=== PATIENT | male | born 1990 | race Caucasian/White ===

== ENCOUNTER 2019-10-07 20:48 | Inpatient (IN) | payer SELFPAY ==
[~2019-10-07] VITALS: Ht 175.3 cm; Wt 71.2 kg
[2019-10-07] VITALS (10 sets, daily range): BP systolic 116–125; BP diastolic 63–81
[2019-10-07] MEDS ORDERED: KETOROLAC 30 MG/ML VIAL IVP ONE (21:00)
[2019-10-07] MEDS ORDERED: fentaNYL INJECTION 100 MCG/2 ML AMP ONE (21:03)
[2019-10-07] MEDS ORDERED: KETOROLAC 30 MG/ML VIAL ONE (21:04)
--- NOTE | 2019-10-07 21:04 | ED Cough/URI ---
General Stated Complaint: FEVER,CHEST PAIN,NEW COUGH Source: patient Exam Limitations: no limitations History of Present Illness Date Seen by Provider: Oct 07, 2019 Time Seen by Provider: 21:02 Initial Comments 29 year old homeless gentleman from [place] to ER with c/o productive coughx3-4 days, sharp stabbing right chest pain x1 day, subjective fevers x1 week that began while he was in [facility]. Otherwise healthy with no known medical problems. Timing/Duration: getting worse Severity/Quality: moderate, productive cough Associated Symptoms: cough, fever/chills, shortness of breath Allergies and Home Medications Allergies Coded Allergies: No Known Drug Allergies (Unverified , 10/07/19) Patient Home Medication List Home Medication List Reviewed: Yes Review of Systems Review of Systems Constitutional: see HPI, chills EENTM: see HPI Respiratory: see HPI, cough Cardiovascular: see HPI, chest pain Genitourinary: no symptoms reported Musculoskeletal: no symptoms reported Skin: no symptoms reported Psychiatric/Neurological: No Symptoms Reported Hematologic/Lymphatic: No Symptoms Reported Physical Exam Vital Signs - First Documented 10/07/19 20:48 Temp 37.2 Pulse 125 Resp 18 B/P (MAP) 127/67 (87) Pulse Ox 94 O2 Delivery Room Air Capillary Refill : Height: '" Weight: lbs. oz. kg; BMI Method: General Appearance: WD/WN, mild distress (related to pain), other (anxious appearing, tachycardic; minor hemoptysis noted. ) HEENT: PERRL/EOMI, normal ENT inspection Neck: non-tender, full range of motion Respiratory: normal breath sounds, no respiratory distress, no accessory muscle use Cardiovascular: other (tachycardic at 120s, SpO2 at 94% room air. ) Gastrointestinal: normal bowel sounds, non tender, soft Neurologic/Psychiatric: alert, normal mood/affect, oriented x 3 Skin: normal color, warm/dry, rash (sharply demarcated petechial rash just above each ankle. Denies wearing any different shoes, denies being in shackles while in [facility]. ) Focused Exam Lactate Level 10/07/19 21:42: Lactic Acid Level Laboratory Tests Test 10/07/19 21:42 Progress/Results/Core Measures Suspected Sepsis SIRS Temperature: Pulse: Respiratory Rate: Laboratory Tests 10/07/19 20:55: White Blood Count 30.0H Blood Pressure / Mean: 10/07/19 21:42: Laboratory Tests 10/07/19 20:55: Creatinine 0.95, Platelet Count 287, Total Bilirubin 1.3H Results/Orders Lab Results Laboratory Tests Test 10/07/19 20:55 10/07/19 20:57 10/07/19 21:42 Range/Units White Blood Count 30.0 H 4.3-11.0 10^3/uL Red Blood Count 4.80 4.35-5.85 10^6/uL Hemoglobin 14.2 13.3-17.7 G/DL Hematocrit 43 40-54 % Mean Corpuscular Volume 89 80-99 FL Mean Corpuscular Hemoglobin 30 25-34 PG Mean Corpuscular Hemoglobin Concent 33 32-36 G/DL Red Cell Distribution Width 14.2 10.0-14.5 % Platelet Count 287 130-400 10^3/uL Mean Platelet Volume 11.6 H 7.4-10.4 FL Neutrophils (%) (Auto) 84 H 42-75 % Lymphocytes (%) (Auto) 7 L 12-44 % Monocytes (%) (Auto) 9 0-12 % Eosinophils (%) (Auto) 0 0-10 % Basophils (%) (Auto) 0 0-10 % Neutrophils # (Auto) 25.1 H 1.8-7.8 X 10^3 Lymphocytes # (Auto) 2.1 1.0-4.0 X 10^3 Monocytes # (Auto) 2.8 H 0.0-1.0 X 10^3 Eosinophils # (Auto) 0.0 0.0-0.3 10^3/uL Basophils # (Auto) 0.0 0.0-0.1 10^3/uL Neutrophils % (Manual) 87 % Lymphocytes % (Manual) 5 % Monocytes % (Manual) 7 % Band Neutrophils 1 % Blood Morphology Comment NORMAL D-Dimer 1.41 H 0.00-0.49 UG/ML Sodium Level 132 L 135-145 MMOL/L Potassium Level 4.5 3.6-5.0 MMOL/L Chloride Level 97 L 98-107 MMOL/L Carbon Dioxide Level 23 21-32 MMOL/L Anion Gap 12 5-14 MMOL/L Blood Urea Nitrogen 19 H 7-18 MG/DL Creatinine 0.95 0.60-1.30 MG/DL Estimat Glomerular Filtration Rate > 60 BUN/Creatinine Ratio 20 Glucose Level 94 70-105 MG/DL Calcium Level 9.9 8.5-10.1 MG/DL Corrected Calcium 9.5 8.5-10.1 MG/DL Total Bilirubin 1.3 H 0.1-1.0 MG/DL Aspartate Amino Transf (AST/SGOT) 15 5-34 U/L Alanine Aminotransferase (ALT/SGPT) 21 0-55 U/L Alkaline Phosphatase 68 40-136 U/L Lactate Dehydrogenase 181 125-220 U/L C-Reactive Protein High Sensitivity 19.30 H 0.00-0.50 MG/DL Total Protein 9.2 H 6.4-8.2 GM/DL Albumin 4.5 3.2-4.5 GM/DL Group A Streptococcus Screen NEGATIVE NEGATIVE Micro Results Microbiology 10/07/19 Influenza Types A,B Antigen (ABBEY) - Final, Complete My Orders Orders - MAGALIS TELLEZ APRN Fentanyl Injection (Sublimaze Injection (10/07/19 21:00) Ketorolac Injection (Toradol Injection) (10/07/19 21:00) Cbc With Automated Diff (10/07/19 21:00) Hs C Reactive Protein (10/07/19 21:00) Comprehensive Metabolic Panel (10/07/19 21:00) Drug Screen Stat (Urine) (10/07/19 21:00) Ed Iv/Invasive Line Start (10/07/19 21:00) Ekg Tracing (10/07/19 21:00) Chest 1 View, Ap/Pa Only (10/07/19 21:00) LDH (10/07/19 21:00) Ferritin (10/07/19 21:00) Procalcitonin (Pct) (10/07/19 21:00) Rapid Strep A Screen (10/07/19 21:00) Influenza A And B Antigens (10/07/19 21:00) Fibrin Degradation Products (10/07/19 21:04) Manual Differential (10/07/19 20:55) Blood Culture (10/07/19 21:16) Lactic Acid Analyzer (10/07/19 21:16) Cefepime Injection (Maxipime Injection) (10/07/19 21:30) Fentanyl Injection (Sublimaze Injection (10/07/19 21:30) Ns Iv 1000 Ml (Sodium Chloride 0.9%) (10/07/19 21:30) Sputum Culture (10/07/19 21:31) Ct Angio Chest W (10/07/19 21:31) Medications Given in ED Current Medications Medications Dose Ordered Sig/Keira Route Start Time Stop Time Status Last Admin Dose Admin Ketorolac Tromethamine 15 mg ONCE ONCE IVP 10/07/19 21:00 10/07/19 21:02 DC 10/07/19 21:14 15 MG Vital Signs/I&O 10/07/19 20:48 Temp 37.2 Pulse 125 Resp 18 B/P (MAP) 127/67 (87) Pulse Ox 94 O2 Delivery Room Air Capillary Refill : Departure Communication (Admissions) Time/Spoke to Admitting Phy: 21:49 2125-covid swab obtained but pt refuses to allow this to go beyond about 2cm deep before grabbing my hand. It was, however, moist with nasal secretions. Impression Primary Impression: Pneumonia Disposition: ADMITTED INPATIENT Condition: Stable Admissions Decision to Admit Reason: Admit from ER (General) Decision to Admit/Date: Oct 07, 2019 Time/Decision to Admit Time: 21:28 MAGALIS TELLEZ OPERATIONS SUPERVISOR 2ND SHIFT Oct 07, 2019 21:04
[2019-10-07 21:08] LABS: BASOPHILS % (AUTO) 0 % (0-10); EOSINOPHILS % (AUTO) 0 % (0-10); HEMATOCRIT 43 % (40-54); HEMOGLOBIN 14.2 G/DL (13.3-17.7); LYMPHOCYTES # (AUTO) 2.1 X 10^3 (1.0-4.0); LYMPHOCYTES % (AUTO) 7 % (12-44); MEAN CORPUSCULAR HEMOGLOBIN 30 PG (25-34); MEAN CORPUSCULAR HGB CONC 33 G/DL (32-36); MEAN CORPUSCULAR VOLUME 89 FL (80-99); MEAN PLATELET VOLUME 11.6 FL (7.4-10.4); MONOCYTES # (AUTO) 2.8 X 10^3 (0.0-1.0); MONOCYTES % (AUTO) 9 % (0-12); NEUTROPHILS # (AUTO) 25.1 X 10^3 (1.8-7.8); NEUTROPHILS % (AUTO) 84 % (42-75); PLATELET COUNT 287 10^3/uL (130-400); RED CELL DISTRIBUTION WIDTH 14.2 % (10.0-14.5)
[2019-10-07] MEDS: fentaNYL INJECTION 100 MCG/2 ML AMP IVP ONE (21:15)
--- NOTE | 2019-10-07 21:27 | Diagnostic Imaging Report ---
INDICATION: Febrile. Chest pain. EXAMINATION: Portable chest. FINDINGS: The lungs are well-aerated and clear. The heart is not enlarged. No pulmonary edema or hilar adenopathy. No bony abnormality. IMPRESSION: Normal portable chest. Dictated by: Dictated on workstation # [id number]
[2019-10-07] MEDS ORDERED: NS IV 1000 ML 1,000 ML IV SCH ×2 (21:30→23:15)
[2019-10-07] MEDS ORDERED: CEFEPIME INJECTION 2,000 MG in WATER (STERILE) FOR INJECTION 20 ML IV ONE (21:30)
[2019-10-07] MEDS ORDERED: fentaNYL INJECTION 100 MCG/2 ML AMP IVP ONE (21:30)
[2019-10-07 21:33] LABS: ALANINE AMINOTRANSFERASE 21 U/L (0-55); ALBUMIN 4.5 GM/DL (3.2-4.5); ALKALINE PHOSPHATASE 68 U/L (40-136); BILIRUBIN,TOTAL 1.3 MG/DL (0.1-1.0); BUN/CREATININE RATIO 20; CALCIUM 9.9 MG/DL (8.5-10.1); CARBON DIOXIDE 23 MMOL/L (21-32); CHLORIDE 97 MMOL/L (98-107); CREATININE SERUM 0.95 MG/DL (0.60-1.30); GFR ESTIMATED > 60; GLUCOSE 94 MG/DL (70-105); POTASSIUM 4.5 MMOL/L (3.6-5.0); SODIUM 132 MMOL/L (135-145); TOTAL PROTEIN 9.2 GM/DL (6.4-8.2)
[2019-10-07 21:46] LABS: BAND NEUTROPHILS 1 %; LYMPHOCYTES % (MANUAL) 5 %; MONOCYTES % (MANUAL) 7 %; NEUTROPHILS % (MANUAL) 87 %; RBC MORPH NORMAL
--- NOTE | 2019-10-07 21:50 | NUR ---
BLOOD TINGED SPUTUM NOTED AT THIS TIME. CINDA MILLARD
--- NOTE | 2019-10-07 21:55 | NUR ---
PT TO CT PER W/C AT THIS TIME.
--- NOTE | 2019-10-07 22:04 | NUR ---
PT BACK FROM CT AT THIS TIME.
--- NOTE | 2019-10-07 22:09 | NUR ---
REPORT TO LORAINE MEDEROS AT THIS TIME.
--- OUTSIDE RECORDS SUMMARY | 2019-10-07 22:19 | XMS REPORT | Continuity of Care Document ---
Demographics Preferred Language Unknown Marital Status Unknown Latter Day Affiliation Unknown Race Unknown Ethnic Group Unknown Author Organization Unknown Address Unknown Phone Unavailable Allergies There is no data. Medications There is no data. Problems There is no data. Procedures There is no data. Results Test Result Range Complete blood count (CBC) with automate d white blood cell (WBC) differential - 10/07/19 20:55 Blood leukocytes automated count (number/volume) 30.0 10*3/uL 4.3-11.0 Blood erythrocytes automated count (number/volume) 4.80 10*6/uL 4.35-5.85 Venous blood hemoglobin measurement (mass/volume) 14.2 g/dL 13.3-17.7 Blood hematocrit (volume fraction) 43 % 40-54 Automated erythrocyte mean corpuscular volume 89 [ foz_us] 80-99 Automated erythrocyte mean corpuscular h emoglobin (mass per erythrocyte) 30 pg 25-34 Automated erythrocyte mean corpuscular h emoglobin concentration measurement (mass/volume) 33 g/dL 32-36 Automated erythrocyte distribution width ratio 14. 2 % 10.0- 14.5 Automated blood platelet count (count/volume) 287 10*3/uL 130-400 Automated blood platelet mean volume measurement 11.6 [foz_us] 7.4-10.4 Automated blood neutrophils/100 leukocytes 84 % 42-75 Automated blood lymphocytes/100 leukocytes 7 % 12-44 Blood monocytes/100 leukocytes 9 % 0-12 Automated blood eosinophils/100 leukocytes 0 % 0-10 Automated blood basophils/100 leukocytes 0 % 0-10 Blood neutrophils automated count (number/volume) 25.1 10*3 1.8-7.8 Blood lymphocytes automated count (number/volume) 2.1 10*3 1.0-4.0 Blood monocytes automated count (number/volume) 2. 8 10*3 0.0-1.0 Automated eosinophil count 0.0 10*3/uL 0 .0-0.3 Automated blood basophil count (count/volume) 0.0 10*3/uL 0.0-0.1 Comprehensive metabolic panel - 10/07/19 20:55 Serum or plasma sodium measurement (moles/volume) 132 mmol/L 135-145 Serum or plasma potassium measurement (moles/volume) 4.5 mmol/L 3.6-5.0 Serum or plasma chloride measurement (moles/volume) 97 mmol/L 98-107 Carbon dioxide 23 mmol/L 21-32 Serum or plasma anion gap determination (moles/volume) 12 mmol/L 5-14 Serum or plasma urea nitrogen measurement (mass/volume ) 19 mg/dL 7-18 Serum or plasma creatinine measurement (mass/volume) 0.95 mg/dL 0.60-1.30 Serum or plasma urea nitrogen/creatinine mass ratio 20 NRG Serum or plasma creatinine measurement w ith calculation of estimated glomerular filtration rate > NRG Serum or plasma glucose measurement (mass/volume) 94 mg/dL 70-105 Serum or plasma calcium measurement (mass/volume) 9.9 mg/dL 8.5-10.1 Serum or plasma total bilirubin measurement (mass/volu me) 1.3 mg/dL 0.1-1.0 Serum or plasma alkaline phosphatase homer surement (enzymatic activity/volume) 68 U/L 40-136 Serum or plasma aspartate aminotransfera se measurement (enzymatic activity/volume) 15 U/L 5-34 Serum or plasma alanine aminotransferase measurement (enzymatic activity/volume) 21 U/L 0-55 Serum or plasma protein measurement (mass/volume) 9.2 g/dL 6.4-8.2 Serum or plasma albumin measurement (mass/volume) 4.5 g/dL 3.2-4.5 CALCIUM CORRECTED 9.5 mg/dL 8.5-10.1 Serum ragweed IgE antibody assay - 10/06 20:55 Serum ragweed IgE antibody assay 181 U/L 125-220 Fibrin D-dimer FEU measurement in platel et poor plasma (mass/volume) - 10/07/19 20:55 Fibrin D-dimer FEU measurement in platelet poor plasma (mass/volume) 1.41 ug/mL 0.00-0.49 PROCALCITONIN (PCT) - 10/07/19 20:55 PROCALCITONIN (PCT) 0.48 ng/mL <0.10 Manual absolute plasma cell count - 09/22 20:55 Blood monocytes/100 leukocytes 7 % NRG Manual blood segmented neutrophils/100 leukocytes 87 % NRG Blood band neutrophils/100 leukocytes 1 % NRG Manual blood lymphocytes/100 leukocytes 5 % NRG Blood erythrocyte morphology finding identification NORMAL NRG Serum or plasma C reactive protein measu rement (mass/volume) - 10/07/19 20:55 Serum or plasma C reactive protein measurement (mass/v olume) 19.30 mg/dL 0.00-0.50 Streptococcus pyogenes antigen detection - 10/07/19 20:57 Streptococcus pyogenes antigen detection NEGATIVE NEGATIVE Influenza virus A and B antigen detectio n - 10/07/19 20:57 FLU RESULT NEGATIVE FOR INFLUENZA A AND B ANTIGENS BY IA NRG Blood lactic acid measurement (moles/vol ume) - 10/07/19 21:42 Blood lactic acid measurement (moles/volume) 1.03 mmol/L 0.50-2.00 Encounters ACCT No. Visit Date/Time Discharge Status Pt. Type Provider Facility Loc./Unit Complaint [id number] 10/07/2019 21:12:00 Document Registration
[2019-10-07] MEDS ORDERED: NS (IVPB) 250 ML ONE (23:13)
[2019-10-07] MEDS ORDERED: AZITHROMYCIN 500 MG (ZITHROMAX) VIAL ONE (23:13)
[2019-10-07] MEDS ORDERED: ONDANSETRON 4 MG/2 ML (SDV) Z0FRAN IV PRN (23:15)
[2019-10-07] MEDS ORDERED: AZITHROMYCIN INJECTION 500 MG in NS (IVPB) 250 ML IV SCH (23:15)
[2019-10-07] MEDS ORDERED: RT-ALBUTEROL HFA (PROAIR HFA) 8.5 GM IH PRN (23:15)
[2019-10-07] MEDS ORDERED: fentaNYL INJECTION 100 MCG/2 ML AMP IV PRN (23:15)
[2019-10-07] MEDS ORDERED: LORazepam INJ 2 MG/ML (ATIVAN) VIAL IV PRN (23:15)
[2019-10-07] MEDS ORDERED: LORazepam 1 MG (ATIVAN) TAB PO PRN (23:15)
[2019-10-08] VITALS (14 sets, daily range): BP systolic 81–141; BP diastolic 37–92
[2019-10-08] MEDS: ACETAMINOPHEN 325 MG TABLET PO PRN (02:10)
[2019-10-08 02:24] LABS: BASOPHILS % (AUTO) 0 % (0-10); EOSINOPHILS % (AUTO) 0 % (0-10); HEMATOCRIT 36 % (40-54); HEMOGLOBIN 12.3 G/DL (13.3-17.7); LYMPHOCYTES # (AUTO) 1.8 X 10^3 (1.0-4.0); LYMPHOCYTES % (AUTO) 7 % (12-44); MEAN CORPUSCULAR HEMOGLOBIN 30 PG (25-34); MEAN CORPUSCULAR HGB CONC 34 G/DL (32-36); MEAN CORPUSCULAR VOLUME 90 FL (80-99); MEAN PLATELET VOLUME 11.6 FL (7.4-10.4); MONOCYTES # (AUTO) 2.1 X 10^3 (0.0-1.0); MONOCYTES % (AUTO) 9 % (0-12); NEUTROPHILS # (AUTO) 20.9 X 10^3 (1.8-7.8); NEUTROPHILS % (AUTO) 84 % (42-75); PLATELET COUNT 229 10^3/uL (130-400); RED CELL DISTRIBUTION WIDTH 14.1 % (10.0-14.5); WHITE BLOOD COUNT 24.8 10^3/uL (4.3-11.0)
[2019-10-08 02:32] LABS: AMPHETAMINE SCREEN, URINE POSITIVE (NEGATIVE); BARBITURATE SCREEN URINE NEGATIVE (NEGATIVE); BENZODIAZEPINES SCREEN URINE NEGATIVE (NEGATIVE); CANNABINOID SCREEN, URINE POSITIVE (NEGATIVE); COCAINE SCREEN URINE NEGATIVE (NEGATIVE); METHADONE STAT NEGATIVE (NEGATIVE); METHAMPHETAMINE SCREEN URINE S POSITIVE (NEGATIVE); OPIATE SCREEN URINE NEGATIVE (NEGATIVE); OXYCODONE STAT NEGATIVE (NEGATIVE); PROPOXYPHENE STAT NEGATIVE (NEGATIVE); TRICYCLIC ANTIDEPRESSANTS SCRE NEGATIVE (NEGATIVE)
[2019-10-08 02:46] LABS: ALANINE AMINOTRANSFERASE 15 U/L (0-55); ALBUMIN 3.4 GM/DL (3.2-4.5); ALKALINE PHOSPHATASE 49 U/L (40-136); BUN/CREATININE RATIO 22; CALCIUM 8.6 MG/DL (8.5-10.1); CARBON DIOXIDE 20 MMOL/L (21-32); CHLORIDE 105 MMOL/L (98-107); CREATININE SERUM 0.88 MG/DL (0.60-1.30); GFR ESTIMATED > 60; GLUCOSE 77 MG/DL (70-105); PHOSPHORUS 2.4 MG/DL (2.3-4.7); POTASSIUM 4.6 MMOL/L (3.6-5.0); SODIUM 135 MMOL/L (135-145); TOTAL PROTEIN 7.1 GM/DL (6.4-8.2)
--- NOTE | 2019-10-08 06:10 | Diagnostic Imaging Report ---
PROCEDURE: CT angiography of the chest with contrast. TECHNIQUE: Multiple contiguous axial images were obtained through the chest after uneventful bolus administration of intravenous contrast. 3D reconstructed CTA MIP acquisitions were also performed. Auto Exposure Controls were utilized during the CT exam to meet ALARA standards for radiation dose reduction. INDICATION: Chest pain and dyspnea. COMPARISON: None. DISCUSSION: There is poor opacification of the pulmonary arteries which limits evaluation for pulmonary emboli. There is no large or central embolus identified. Consolidation is noted within the right middle lobe and right lower lobe consistent with pneumonia. Normal heart size. No pleural or pericardial fluid. No pathologically enlarged lymph nodes identified. The thoracic aorta is normal in caliber and configuration. No osseous abnormality identified. Cholelithiasis is noted. IMPRESSION: 1. Nondiagnostic exam for pulmonary emboli due to poor opacification of the pulmonary arteries. 2. Pneumonia noted within the right middle and right lower lobe. 3. Agree with preliminary report. Dictated by: Dictated on workstation # [id number]
[2019-10-08] MEDS ORDERED: LACTATED RINGERS 1,000 ML IV SCH (08:00)
[2019-10-08] MEDS ORDERED: CEFEPIME INJECTION 2,000 MG in WATER (STERILE) FOR INJECTION 20 ML IV SCH (09:00)
--- NOTE | 2019-10-08 12:44 | History & Physical-Hospitalist ---
History of Present Illness HPI/Chief Complaint Terrence Vail is a 29-year-old male with no known past medical history who presented with cough, shortness of breath, and pleuritic chest pain. He reports that he is been having fevers at home but has not been checking his temperature. He reports that he has had a cough productive of sputum. He reports coughing up some blood-tinged sputum. He also reports some body aches. He reports having chest pain that is worse when he takes a deep breath. He reports some nausea. He reports diarrhea. He denies any abdominal pain. He denies any dysuria. He denies any rash. He says that he smokes a little less than a pack a day. He does not drink much alcohol. He has been smoking methamphetamine. He denies any recent opioid use. He says that he smokes marijuana. Source: patient Exam Limitations: no limitations Date Seen 10/08/19 Time Seen by a Provider: 10:00 Attending Physician Ngozi Yang MD PCP No,Local Physician Referring Physician Date of Admission Oct 07, 2019 at 22:15 Home Medications & Allergies Home Medications Reviewed patient Home Medication Reconciliation performed by pharmacy medication reconciliations senior quality technician and/or nursing. Patients Allergies have been reviewed. Allergies Allergies Coded Allergies No Known Drug Allergies (Unverified10/07/19) Past Mqysrbx-Jnncjz-Bjuojd Hx Past Med/Social Hx: Reviewed and Corrections made Patient Social History Alcohol Use: Occasionally Uses Recreational Drug Use: Yes Drug of Choice: MARIJUANA, methamphetamine Smoking Status: Current Everyday Smoker Type Used: Cigarettes Recent Foreign Travel: No Contact w/other who traveled: No Recent Hopitalizations: No Recent Infectious Disease Expo: No Immunizations Up To Date Date of Pneumonia Vaccine: Oct 06, 2014 Past Medical History History of Blood Disorders: No Review of Systems Constitutional: fever, malaise EENTM: no symptoms reported Respiratory: cough, hemoptysis, phlegm, short of breath Gastrointestinal: diarrhea, nausea Genitourinary: no symptoms reported Musculoskeletal: muscle stiffness Skin: no symptoms reported Psychiatric/Neurological: No Symptoms Reported Physical Exam Physical Exam Vital Signs Vital Signs - First Documented 10/07/19 20:48 Temp 37.2 Pulse 125 Resp 18 B/P (MAP) 127/67 (87) Pulse Ox 94 O2 Delivery Room Air Capillary Refill : Less Than 3 Seconds Height, Weight, BMI Height: '" Weight: lbs. oz. kg; 23.20 BMI Method: General Appearance: No Apparent Distress, WD/WN, Anxious Neck: Normal Inspection, Supple Respiratory: No Respiratory Distress, Crackles Cardiovascular: Regular Rate, Rhythm, No Edema, No Murmur Gastrointestinal: Normal Bowel Sounds, Non Tender, Soft Extremity: Normal Inspection, Non Tender, No Pedal Edema Neurologic/Psychiatric: Alert, Oriented x3, No Motor/Sensory Deficits, Normal Mood/Affect Skin: Normal Color, Warm/Dry Results Results/Procedures Labs Laboratory Tests 10/07/19 20:55 10/08/19 01:51 Patient resulted labs reviewed. Imaging: Reviewed Imaging Report Assessment/Plan Admission Diagnosis sepsis due to pneumonia Admission Status: Inpatient Order (span 2 midnights) Reason for Inpatient Admission: sepsis due to pneumonia requiring IV antibiotics Assessment and Plan sepsis due to pneumonia SIRS+ with fever and tachycardia CT revealed a right middle and lower lobe pneumonia Procalcitonin elevated at 0.48 Flu negative Strep negative COVID pending started on cefepime and azithromycin Transition to Levaquin IV fluids polysubstance abuse Recommend cessation tobacco abuse Nicotine patch DVT prophylaxis: Lovenox Diagnosis/Problems Diagnosis/Problems (1) Sepsis due to pneumonia Status: Acute (2) Polysubstance abuse Status: Acute (3) Tobacco abuse Status: Chronic Clinical Quality Measures DVT/VTE Risk/Contraindication: Risk Factor Score Per Nursin RFS Level Per Nursing on Admit: 2=Moderate NGOZI YANG MD Oct 08, 2019 12:44
--- NOTE | 2019-10-08 15:35 | NUR ---
Report received from Radha MEDEROS, patient to room 432, will assume care of patient at this time.
--- NOTE | 2019-10-08 15:35 | NUR ---
Report given to Elena MEDEROS on 4th floor, patient to room 432. This nurse took patient to room via wheel chair, this nurse in droplet precautions, patient wearing a mask. Shaye KNOX, assisted with transferring patient to room. Elena MEDEROS notified of patients arrival.
[2019-10-08] MEDS: LEVOFLOXACIN 750 MG/150 ML IV 150 ML IV SCH (16:41)
[2019-10-08] MEDS: NICOTINE 14 MG (NICODERM) PATCH TD SCH (16:41)
[2019-10-08] MEDS ORDERED: ENOXAPARIN 40 MG/0.4 ML (LOVENOX) SYR SC SCH (22:00)
[2019-10-09] VITALS: BP 94/55
[2019-10-09] MEDS: LACTATED RINGERS 1,000 ML IV SCH ×3 (02:32→06:48)
[2019-10-09 04:00] VITALS: BP 95/56
[2019-10-09 04:58] LABS: BASOPHILS % (AUTO) 0 % (0-10); EOSINOPHILS # (AUTO) 0.1 10^3/uL (0.0-0.3); EOSINOPHILS % (AUTO) 1 % (0-10); HEMATOCRIT 38 % (40-54); HEMOGLOBIN 12.3 G/DL (13.3-17.7); LYMPHOCYTES # (AUTO) 2.6 X 10^3 (1.0-4.0); LYMPHOCYTES % (AUTO) 23 % (12-44); MEAN CORPUSCULAR HEMOGLOBIN 30 PG (25-34); MEAN CORPUSCULAR HGB CONC 33 G/DL (32-36); MEAN CORPUSCULAR VOLUME 91 FL (80-99); MEAN PLATELET VOLUME 11.6 FL (7.4-10.4); MONOCYTES # (AUTO) 1.3 X 10^3 (0.0-1.0); MONOCYTES % (AUTO) 12 % (0-12); NEUTROPHILS # (AUTO) 7.2 X 10^3 (1.8-7.8); NEUTROPHILS % (AUTO) 64 % (42-75); PLATELET COUNT 208 10^3/uL (130-400); RED CELL DISTRIBUTION WIDTH 14.2 % (10.0-14.5); WHITE BLOOD COUNT 11.2 10^3/uL (4.3-11.0)
[2019-10-09 05:25] LABS: BUN/CREATININE RATIO 18; CALCIUM 8.4 MG/DL (8.5-10.1); CARBON DIOXIDE 22 MMOL/L (21-32); CHLORIDE 108 MMOL/L (98-107); CREATININE SERUM 0.79 MG/DL (0.60-1.30); GFR ESTIMATED > 60; GLUCOSE 99 MG/DL (70-105); MAGNESIUM 1.9 MG/DL (1.6-2.4); PHOSPHORUS 2.8 MG/DL (2.3-4.7); POTASSIUM 3.8 MMOL/L (3.6-5.0); SODIUM 137 MMOL/L (135-145)
[2019-10-09 07:33] VITALS: BP 99/58
[2019-10-09] MEDS: LEVOFLOXACIN 750 MG/150 ML IV 150 ML IV SCH (08:23)
[2019-10-09] MEDS: NICOTINE 14 MG (NICODERM) PATCH TD SCH (08:23)
[2019-10-09] MEDS ORDERED: PATCH REMOVAL TP SCH (09:00)
[2019-10-09] MEDS ORDERED: LEVO750T9 PO (10:22)
--- NOTE | 2019-10-09 10:28 | Discharge Summary ---
Discharge Summary Hospital Course Was the Problem List Reviewed?: Yes Problems/Dx: (1) Sepsis due to pneumonia Status: Acute (2) Polysubstance abuse Status: Acute (3) Tobacco abuse Status: Chronic Hospital Course Date of Admission: Oct 07, 2019 at 22:15 Admission Diagnosis : Sepsis due to pneumonia Family Physician/Provider: Hiwot,Local Physician Date of Discharge: 10/09/19 Discharge Diagnosis: Sepsis due to pneumonia Hospital Course: Terrence Vail is a 29-year-old male who was admitted with sepsis due to pneumonia. He had been having fever, cough, shortness of breath, and pleuritic chest pain. His CT chest was consistent with a right middle and lower lobe pneumonia. He was treated with Levaquin and was given a 7 day course on discharge. One risk factor appeared to be methamphetamine abuse, which she had been smoking. Cessation was recommended. He needs to establish care with a primary care physician. He was discharged in stable condition. Labs and Pending Lab Test: Laboratory Tests 10/08/19 13:00: Adenovirus (PCR) [Pending], Human Metapneumovirus (PCR) [Pending], Influenza Virus Type A (PCR) [Pending], Influenza Virus Type B (PCR) [Pending], Urine Legionella pneumophilia Ag Negative, Parainfluenza Type 1 (PCR) [Pending], Par ainfluenza Type 2 (PCR) [Pending], Parainfluenza Type 3 (PCR) [Pending], Respiratory Syncytial Virus (PCR) [Pending], Streptococcus pneumoniae Antigen Negative 10/09/19 04:47: White Blood Count 11.2H, Red Blood Count 4.13L, Hemoglobin 12.3L, Hematocrit 38L , Mean Corpuscular Volume 91, Mean Corpuscular Hemoglobin 30, Mean Corpuscular Hemoglobin Concent 33, Red Cell Distribution Width 14.2, Platelet Count 208, Mean Platelet Volume 11.6H, Neutrophils (%) (Auto) 64, Lymphocytes (%) (Auto) 23, Monocytes (%) (Auto) 12, Eosinophils (%) (Auto) 1, Basophils (%) (Auto) 0, Neutrophils # (Auto) 7.2, Lymphocytes # (Auto) 2.6, Monocytes # (Auto) 1.3H, Eosinophils # (Auto) 0.1, Basophils # (Auto) 0.0, Sodium Level 137, Potassium Level 3.8, Chloride Level 108H, Carbon Dioxide Level 22, Anion Gap 7, Blood Urea Nitrogen 14, Creatinine 0.79, Estimat Glomerular Filtration Rate > 60, BU N/Creatinine Ratio 18, Glucose Level 99, Calcium Level 8.4L, Phosphorus Level 2.8, Magnesium Level 1.9 Microbiology 10/07/19 MRSA Screen - Final, Complete MRSA not isolated 10/07/19 Blood Culture - Preliminary, Resulted No growth Home Meds Active Levaquin (Levofloxacin) 750 Mg Tablet 750 Mg PO DAILY 7 Days Assessment/Pt Instructions Take medications as prescribed. Complete her course of antibiotics even if you're feeling better. Establish care with a primary care physician. Discharge Planning: <30 minutes discharge planning Discharge Instructions Discharge Diet: No Restrictions Activity as Tolerated: Yes Discharge Physical Examination Vital Signs Vital Signs Date Time Temp Pulse Resp B/P (MAP) Pulse Ox O2 Delivery O2 Flow Rate FiO2 10/09/19 08:45 Room Air 10/09/19 07:33 37.0 62 18 99/58 (72) 98 General Appearance: No Apparent Distress, WD/WN Respiratory: Lungs Clear, Normal Breath Sounds, No Respiratory Distress Cardiovascular: Regular Rate, Rhythm, No Edema, No Murmur Gastrointestinal: Normal Bowel Sounds, Non Tender, Soft Extremity: Normal Inspection, Non Tender, No Pedal Edema Skin: Normal Color, Warm/Dry Neurologic/Psychiatric: Alert, Oriented x3, No Motor/Sensory Deficits, Depressed Affect Allergies: Coded Allergies: No Known Drug Allergies (Unverified , 10/07/19) Discharge Summary Date of Admission Oct 07, 2019 at 22:15 Date of Discharge Discharge Date: Oct 09, 2019 Discharge Time: 10:27 Admission Diagnosis sepsis due to pneumonia Discharge Diagnosis sepsis due to pneumonia (1) Sepsis due to pneumonia Status: Acute (2) Polysubstance abuse Status: Acute (3) Tobacco abuse Status: Chronic Clinical Quality Measures DVT/VTE Risk/Contraindication: Risk Factor Score Per Nursin RFS Level Per Nursing on Admit: 2=Moderate DIANE YANG MD Oct 09, 2019 10:28
[2019-10-09] MEDS ORDERED: LEVOFLOXACIN 750 MG TAB (LEVAQUIN) PO ONE (10:30)
[2019-10-09] MEDS: ACETAMINOPHEN 325 MG TABLET PO PRN (11:49)
[2019-10-09 12:42] VITALS: BP 115/75
[2019-10-09 13:40] VITALS: BP 115/75
[2019-10-10 14:43] LABS: RSV PCR TEST Not Detected (Not Detected)
== END 2019-10-09 13:40 | disposition home or self-care (01) | DRG 871 ==
LOC: ER 20:51 → ICU 22:15 → 4TH 10-08 15:26
PROVIDERS: ADMIT Internal Medicine; ATTEND Internal Medicine
DX: A41.9 Sepsis, unspecified organism (principal); J18.9 Pneumonia, unspecified organism; F17.210 Nicotine dependence, cigarettes, uncomplicated; F15.10 Other stimulant abuse, uncomplicated; F12.10 Cannabis abuse, uncomplicated; Z59.0 Homelessness
CPT/HCPCS: 36415; 71045; 71275; 80048; 80053; 80306; 82728; 83605; 83615; 83735; 84100; 84145; 85007; 85025; 85027; 85379; 86141; 87040; 87070; 87081; 87205; 87430; 87449; 87631; 87635; 87804; 87899